=== PATIENT | female | born 1990 | race Caucasian/White ===

== ENCOUNTER 2022-10-21 20:59 | Emergency (ER) | payer BC, SELFPAY ==
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
[2022-10-21 21:11] VITALS: PULSE 126; RESP 20; TEMP 36.2; O2SAT 100; BMI 27.4
--- NOTE | 2022-10-21 21:15 | CRLHL7_ITS ---
For Patients: As a result of the Century Cures Act, medical imaging exams and procedure reports are released immediately into your electronic medical record. You may view this report before your referring provider. If you have questions, please contact your health care provider. INDICATION: Altered mental status. TECHNIQUE: CT head without contrast. COMPARISON: None. FINDINGS: CSF spaces: Within normal limits for age. Brain parenchyma: The levine-white differentiation is normal. No sign of mass, hemorrhage, or midline shift. Skull base and calvarium: Scattered polypoid mucosal thickening in the ethmoid, maxillary, and sphenoid sinuses. Mastoid air cells are clear. The visualized orbits are grossly unremarkable. No skull fractures. IMPRESSION: 1. No acute intracranial abnormality. 2. Scattered polypoid mucosal thickening in the ethmoid, maxillary, and sphenoid sinuses. Please note that all CT scans at this facility use dose modulation, iterative reconstruction, and/or weight-based dosing when appropriate to reduce radiation dose to as low as reasonably achievable. Dictated by Ross Hamilton MD @ 10/21/2022 11:06:52 PM (Electronically Signed)
--- NOTE | 2022-10-21 21:18 | ED.AMS ---
HPI - Altered Mental Status General Chief Complaint: Altered Mental Status <Janse Tamayo MD - Last Filed: 10/21/22 23:18> Stated Complaint: delusional <Janes Tamayo MD - Last Filed: 10/21/22 23:18> Time Seen by Provider: 10/21/22 21:15 <Janes Tamayo MD - Last Filed: 10/21/22 23:18> History of Present Illness HPI narrative: Patient is a 32-year-old woman with a history of only mild anxiety depression on fluoxetine who presents with 2 days of psychosis. Patient was in her usual state of health yesterday when she did show a better parent's house to hot die picker her children. Patient's parents when looking for found her in her own home appearing disheveled and confused. Patient has remained agitated and delirious med and often times nonsensical our last 24 hours. Patient is not able answer any questions and as a result was brought into the hospital by a mom. Patient's last alcohol by history was 5 days ago she has had no recent traumas. No fevers no chills no night sweats. No rashes no bruising no similar symptoms previously. No change in medication although compliance is unknown. <Janes Tamayo MD - Last Filed: 10/21/22 23:18> Related Data Home Medications: Home Medications Medication Instructions Recorded Confirmed betamethasone dipropionate 0.05 % 1 applic topical BID 10/21/22 10/21/22 topical cream dextroamphetamine-amphetamine 10 1 tab PO DAILY 10/21/22 10/21/22 mg tablet fluoxetine 10 mg capsule 10 mg PO DAILY 10/21/22 10/21/22 levonorgestrel-ethinyl estradiol 1 tab PO DAILY 10/21/22 10/21/22 0.1 mg-20 mcg tablet (Lessina) minocycline 100 mg capsule 100 mg PO BID 10/21/22 10/21/22 <Janes Tamayo MD - Last Filed: 10/21/22 23:18> Allergies/Adverse Reactions: Allergies Allergy/AdvReac Type Severity Reaction Status Date / Time No Known Drug Allergies Allergy Verified 10/21/22 21:09 <Janes Tamayo MD - Last Filed: 10/21/22 23:18> Review of Systems Status of ROS: Reports: unobtainable due to medical condition <Janes Tamayo MD - Last Filed: 10/21/22 23:18> [facility] Medical History: Medical History ADHD ?F90.9 - Attention-deficit hyperactivity disorder, unspecified type (ICD-10) Anxiety and depression ?F41.9 - Anxiety disorder, unspecified (ICD-10) ?F32.A - Depression, unspecified (ICD-10) <Janes Tamayo MD - Last Filed: 10/21/22 23:18> Social History: Social History How often do you have a drink containing alcohol: 2-4 times a month How many standard drinks containing alcohol do you have on a typical day: 3 or 4 How often do you have six or more drinks on one occasion: Less than monthly AUDIT-C Alcohol total score: 4 Non-prescribed substance use: denies use <Janes Tamayo MD - Last Filed: 10/21/22 23:18> Exam Narrative: Exam Narrative: EXAM GENERAL: Patient appears writhing acutely delirious. EYES: No scleral icterus. LYMPH: No supraclavicular or cervical lymphadenopathy. SKIN: Visible skin seen during exam normal or with benign process only. EXT: No dependent lower extremity pedal edema. HEART: Regular rate and rhythm with no murmurs, rubs, or gallops. LUNGS: Clear to auscultation bilaterally with no crackles or wheezes. ABD: Soft, non tender, non distended. PSYCH: Poor eye contact. Patient says nonsensical words and does not follow the conversation at all. Neurologic cranial nerves 2-12 grossly intact no focal defects <Janes Tamayo MD - Last Filed: 10/21/22 23:18> Const: Vital Signs, click to edit/add: Vital Signs - 24 hr 10/21/22 21:11 10/21/22 22:54 10/22/22 08:11 Temperature 97.2 F L 98.2 F Pulse Rate [Pulse Oximeter] 126 H 81 71 Respiratory Rate 20 14 18 Blood Pressure [Ri ght Upper Arm] 115/72 125/90 H Pulse Oximetry 100 99 97 Oxygen Delivery Me thod Room Air Room Air Room Air <Janes Tamayo MD - Last Filed: 10/21/22 23:18> Vital Signs, click to edit/add: Vital Signs - 24 hr 10/21/22 21:11 10/21/22 22:54 10/22/22 08:11 Temperature 97.2 F L 98.2 F Pulse Rate [Pulse Oximeter] 126 H 81 71 Respiratory Rate 20 14 18 Blood Pressure [Ri ght Upper Arm] 115/72 125/90 H Pulse Oximetry 100 99 97 Oxygen Delivery Me thod Room Air Room Air Room Air <Nena Contreras MD - Last Filed: 10/22/22 10:44> Course Course Hospital Course: Patient seen examined. CT of the head salicylate acetaminophen CBC CMP ETOH toxicology UA beta hCG pending. Took over the care for this patient. 32-year-old female presented confused agitated last night, received a dose of Zyprexa in order to have the CT scan done has been sleeping overnight. CT scan normal. Labs were unremarkable except for urine drug screen was positive for both marijuana and amphetamines -patient is on Adderall. Patient woke up this morning acting much more like herself. 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 She admits to using marijuana regularly and drinks several drinks every 2 days or so. She is concerned that when she does drink she does not sleep, she believes that her symptoms are due to a complete lack of sleep. She denies all other drug use. Of note, She does have very poor dentition. DEC assessment was done: They found her to be a little slow this morning. She told them the same story that I got from her. She does deny hallucinations she denies suicidal ideations or homicidal ideation. She does feel safe to be discharged home at this time with outpatient psychiatry scheduled per DEC. Family is in contact with her daily. <Janes Tamayo MD - Last Filed: 10/21/22 23:18> Reevaluation(s) Reevaluation #1: Patient remains significantly agitated. In order to provide for the patient's safety and to continue with evaluation I did to treat her with 10 mg of IM Zyprexa. <Janes Tamayo MD - Last Filed: 10/21/22 23:18> Reevaluation #2: Patient's workup to this point has been on remarkable. Urine toxicology UA still pending. CT of the head shows minor sinus issues. No other acute abnormalities noted. Patient is resting comfortably after receiving 10 mg of IM Zyprexa for severe agitation. <Janes Tamayo MD - Last Filed: 10/21/22 23:18> Vital Signs Vital signs: Initial Vital Signs Temperature 97.2 F L 10/21/22 21:11 Temperature Source Temporal Artery Scan 10/21/22 21:11 Pulse Rate 126 H 10/21/22 21:11 Respiratory Rate 20 10/21/22 21:11 Pulse Oximetry 100 10/21/22 21:11 Oxygen Delivery Method Room Air 10/21/22 21:11 Vital Signs Temperature 97.2 F L 10/21/22 21:11 Pulse Rate 126 H 10/21/22 21:11 Respiratory Rate 20 10/21/22 21:11 Pulse Oximetry 100 10/21/22 21:11 Oxygen Delivery Method Room Air 10/21/22 21:11 Temperature 98.2 F 10/22/22 08:11 Pulse Rate 71 10/22/22 08:11 Respiratory Rate 18 10/22/22 08:11 Blood Pressure 125/90 H 10/22/22 08:11 Pulse Oximetry 97 10/22/22 08:11 Oxygen Delivery Method Room Air 10/22/22 08:11 <Janes Tamayo MD - Last Filed: 10/21/22 23:18> Initial Vital Signs Temperature 97.2 F L 10/21/22 21:11 Temperature Source Temporal Artery Scan 10/21/22 21:11 Pulse Rate 126 H 10/21/22 21:11 Respiratory Rate 20 10/21/22 21:11 Pulse Oximetry 100 10/21/22 21:11 Oxygen Delivery Method Room Air 10/21/22 21:11 Vital Signs Temperature 97.2 F L 10/21/22 21:11 Pulse Rate 126 H 10/21/22 21:11 Respiratory Rate 20 10/21/22 21:11 Pulse Oximetry 100 10/21/22 21:11 Oxygen Delivery Method Room Air 10/21/22 21:11 Temperature 98.2 F 10/22/22 08:11 Pulse Rate 71 10/22/22 08:11 Respiratory Rate 18 10/22/22 08:11 Blood Pressure 125/90 H 10/22/22 08:11 Pulse Oximetry 97 10/22/22 08:11 Oxygen Delivery Method Room Air 10/22/22 08:11 <Nena Contreras MD - Last Filed: 10/22/22 10:44> MDM - Altered Mental Status MDM Narrative Medical decision making narrative: 32-year-old female altered mental status, unclear etiology. Patient appears to be back to her baseline this morning although perhaps processing a little slower than usual. There is no evidence of brain pathology such as subarachnoid hemorrhage, no evidence of sepsis or infection. At this time she does feel safe to go home and family feel safe with this plan also as they do have daily contact with her. DEC will set up outpatient psychiatry and follow-up. Certainly return to the ER if symptoms return. Patient and family felt comfortable with this plan and had no other questions. <Nena Contreras MD - Last Filed: 10/22/22 10:44> Medical Records Attestation: I reviewed the patient's medical records. <Nena Contreras MD - Last Filed: 10/22/22 10:44> Lab Data Attestation: I reviewed the patient's lab results. <Nena Contreras MD - Last Filed: 10/22/22 10:44> Labs: Lab Results 10/21/22 10/21/22 10/21/22 Range/Units 21:30 21:30 21:30 WBC 11.49 H (4.50-11.00) K/uL RBC 4.89 (4.00-5.20) m/uL Hgb 14.4 (12.0-16.0) gm/dL Hct 42.1 (33.0-51.0) % MCV 86 (80-100) fL MCH 29 (26-34) pg MCHC 34 (32-36) gm/dL RDW Coeff of Enoc 12.5 (11.5-15.5) % Plt Count 316 (140-440) K/uL Neut % (Auto) 68.4 (42.0-72.0) % Lymph % (Auto) 24.5 (20-44) % Jones % (Auto) 5.9 (0.0-11.0) % Eos % (Auto) 0.9 (0.0-7.0) % Baso % (Auto) 0.2 (0.0-3.0) % Neut # (Auto) 7.90 H (1.7-7.0) K/uL Lymph # (Auto) 2.80 (0.90-2.90) K/uL Jones # (Auto) 0.70 (0.00-0.90) K/UL Eos # (Auto) 0.10 (0.00-0.50) K/uL Baso # (Auto) 0.00 (0.00-0.30) K/uL Sodium 138 (135-149) mmol/L Potassium 3.9 (3.6-5.1) mmol/L Chloride 103 (96-114) mmol/L Carbon Dioxide 23 (20-32) mmol/L BUN 11 (5-24) mg/dL Creatinine 0.7 (0.5-1.5) mg/dL Estimated Creat Clear 113.24 Estimated GFR 119 ml/min Glucose 82 (60-115) mg/dL Calcium 9.5 (8.4-10.6) mg/dL Total Bilirubin 0.9 (0.1-1.5) mg/dL AST 36 H (12-35) U/L ALT 33 (4-35) U/L Alkaline Phosphatase 81 (40-150) U/L Total Protein 7.9 (6.0-8.3) g/dL Albumin 4.6 (3.3-5.0) g/dL HCG, Qual Negative (Negative) Urine Color (Yellow) Urine Appearance (Clear) Urine pH (5.0-8.5) Ur Specific Needles (1.000-1.030) Urine Protein (Negative) Urine Glucose (UA) (Negative) Urine Ketones (Negative) Urine Blood (Negative) Urine Nitrite (Negative) Urine Bilirubin (Negative) Urine Urobilinogen (0.2-1.0) Ur Leukocyte Esterase (Negative) Salicylates < 1.0 L Cancelled (1.0-10) mg/dL Urine Opiates Screen (Negative) Ur Oxycodone Screen (Negative) Urine Methadone Screen (Negative) Ur Propoxyphene Screen (Negative) Acetaminophen < 10.0 L Cancelled (10.0-30.0) ug/mL Ur Barbiturates Screen (Negative) U Tricyclic Antidepress (Negative) Ur Phencyclidine Scrn (Negative) Ur Amphetamines Screen (Negative) U Methamphetamines Scrn (Negative) U Benzodiazepines Scrn (Negative) Urine Cocaine Screen (Negative) U Marijuana (THC) Screen (Negative) Ur Drug Screen Comment Ethyl Alcohol < 0.01 L (0.01-0.03) % 10/22/22 10/22/22 Range/Units 08:10 08:14 WBC (4.50-11.00) K/uL RBC (4.00-5.20) m/uL Hgb (12.0-16.0) gm/dL Hct (33.0-51.0) % MCV (80-100) fL MCH (26-34) pg MCHC (32-36) gm/dL RDW Coeff of Enoc (11.5-15.5) % Plt Count (140-440) K/uL Neut % (Auto) (42.0-72.0) % Lymph % (Auto) (20-44) % Jones % (Auto) (0.0-11.0) % Eos % (Auto) (0.0-7.0) % Baso % (Auto) (0.0-3.0) % Neut # (Auto) (1.7-7.0) K/uL Lymph # (Auto) (0.90-2.90) K/uL Jones # (Auto) (0.00-0.90) K/UL Eos # (Auto) (0.00-0.50) K/uL Baso # (Auto) (0.00-0.30) K/uL Sodium (135-149) mmol/L Potassium (3.6-5.1) mmol/L Chloride (96-114) mmol/L Carbon Dioxide (20-32) mmol/L BUN (5-24) mg/dL Creatinine (0.5-1.5) mg/dL Estimated Creat Clear Estimated GFR ml/min Glucose (60-115) mg/dL Calcium (8.4-10.6) mg/dL Total Bilirubin (0.1-1.5) mg/dL AST (12-35) U/L ALT (4-35) U/L Alkaline Phosphatase (40-150) U/L Total Protein (6.0-8.3) g/dL Albumin (3.3-5.0) g/dL HCG, Qual (Negative) Urine Color Yellow (Yellow) Urine Appearance Clear (Clear) Urine pH 5.5 (5.0-8.5) Ur Specific Needles 1.025 (1.000-1.030) Urine Protein Negative (Negative) Urine Glucose (UA) Negative (Negative) Urine Ketones 1+ A (Negative) Urine Blood Negative (Negative) Urine Nitrite Negative (Negative) Urine Bilirubin 1+ A (Negative) Urine Urobilinogen 0.2 (0.2-1.0) Ur Leukocyte Esterase Negative (Negative) Salicylates (1.0-10) mg/dL Urine Opiates Screen Negative (Negative) Ur Oxycodone Screen Negative (Negative) Urine Methadone Screen Negative (Negative) Ur Propoxyphene Screen Negative (Negative) Acetaminophen (10.0-30.0) ug/mL Ur Barbiturates Screen Negative (Negative) U Tricyclic Antidepress Negative (Negative) Ur Phencyclidine Scrn Negative (Negative) Ur Amphetamines Screen POSITIVE A* (Negative) U Methamphetamines Scrn Negative (Negative) U Benzodiazepines Scrn Negative (Negative) Urine Cocaine Screen Negative (Negative) U Marijuana (THC) Screen POSITIVE A* (Negative) Ur Drug Screen Comment See Note Ethyl Alcohol (0.01-0.03) % <Janes Tamayo MD - Last Filed: 10/21/22 23:18> Lab Results 10/21/22 10/21/22 10/21/22 Range/Units 21:30 21:30 21:30 WBC 11.49 H (4.50-11.00) K/uL RBC 4.89 (4.00-5.20) m/uL Hgb 14.4 (12.0-16.0) gm/dL Hct 42.1 (33.0-51.0) % MCV 86 (80-100) fL MCH 29 (26-34) pg MCHC 34 (32-36) gm/dL RDW Coeff of Enoc 12.5 (11.5-15.5) % Plt Count 316 (140-440) K/uL Neut % (Auto) 68.4 (42.0-72.0) % Lymph % (Auto) 24.5 (20-44) % Jones % (Auto) 5.9 (0.0-11.0) % Eos % (Auto) 0.9 (0.0-7.0) % Baso % (Auto) 0.2 (0.0-3.0) % Neut # (Auto) 7.90 H (1.7-7.0) K/uL Lymph # (Auto) 2.80 (0.90-2.90) K/uL Jones # (Auto) 0.70 (0.00-0.90) K/UL Eos # (Auto) 0.10 (0.00-0.50) K/uL Baso # (Auto) 0.00 (0.00-0.30) K/uL Sodium 138 (135-149) mmol/L Potassium 3.9 (3.6-5.1) mmol/L Chloride 103 (96-114) mmol/L Carbon Dioxide 23 (20-32) mmol/L BUN 11 (5-24) mg/dL Creatinine 0.7 (0.5-1.5) mg/dL Estimated Creat Clear 113.24 Estimated GFR 119 ml/min Glucose 82 (60-115) mg/dL Calcium 9.5 (8.4-10.6) mg/dL Total Bilirubin 0.9 (0.1-1.5) mg/dL AST 36 H (12-35) U/L ALT 33 (4-35) U/L Alkaline Phosphatase 81 (40-150) U/L Total Protein 7.9 (6.0-8.3) g/dL Albumin 4.6 (3.3-5.0) g/dL HCG, Qual Negative (Negative) Urine Color (Yellow) Urine Appearance (Clear) Urine pH (5.0-8.5) Ur Specific Needles (1.000-1.030) Urine Protein (Negative) Urine Glucose (UA) (Negative) Urine Ketones (Negative) Urine Blood (Negative) Urine Nitrite (Negative) Urine Bilirubin (Negative) Urine Urobilinogen (0.2-1.0) Ur Leukocyte Esterase (Negative) Salicylates < 1.0 L Cancelled (1.0-10) mg/dL Urine Opiates Screen (Negative) Ur Oxycodone Screen (Negative) Urine Methadone Screen (Negative) Ur Propoxyphene Screen (Negative) Acetaminophen < 10.0 L Cancelled (10.0-30.0) ug/mL Ur Barbiturates Screen (Negative) U Tricyclic Antidepress (Negative) Ur Phencyclidine Scrn (Negative) Ur Amphetamines Screen (Negative) U Methamphetamines Scrn (Negative) U Benzodiazepines Scrn (Negative) Urine Cocaine Screen (Negative) U Marijuana (THC) Screen (Negative) Ur Drug Screen Comment Ethyl Alcohol < 0.01 L (0.01-0.03) % 10/22/22 10/22/22 Range/Units 08:10 08:14 WBC (4.50-11.00) K/uL RBC (4.00-5.20) m/uL Hgb (12.0-16.0) gm/dL Hct (33.0-51.0) % MCV (80-100) fL MCH (26-34) pg MCHC (32-36) gm/dL RDW Coeff of Enoc (11.5-15.5) % Plt Count (140-440) K/uL Neut % (Auto) (42.0-72.0) % Lymph % (Auto) (20-44) % Jones % (Auto) (0.0-11.0) % Eos % (Auto) (0.0-7.0) % Baso % (Auto) (0.0-3.0) % Neut # (Auto) (1.7-7.0) K/uL Lymph # (Auto) (0.90-2.90) K/uL Jones # (Auto) (0.00-0.90) K/UL Eos # (Auto) (0.00-0.50) K/uL Baso # (Auto) (0.00-0.30) K/uL Sodium (135-149) mmol/L Potassium (3.6-5.1) mmol/L Chloride (96-114) mmol/L Carbon Dioxide (20-32) mmol/L BUN (5-24) mg/dL Creatinine (0.5-1.5) mg/dL Estimated Creat Clear Estimated GFR ml/min Glucose (60-115) mg/dL Calcium (8.4-10.6) mg/dL Total Bilirubin (0.1-1.5) mg/dL AST (12-35) U/L ALT (4-35) U/L Alkaline Phosphatase (40-150) U/L Total Protein (6.0-8.3) g/dL Albumin (3.3-5.0) g/dL HCG, Qual (Negative) Urine Color Yellow (Yellow) Urine Appearance Clear (Clear) Urine pH 5.5 (5.0-8.5) Ur Specific Needles 1.025 (1.000-1.030) Urine Protein Negative (Negative) Urine Glucose (UA) Negative (Negative) Urine Ketones 1+ A (Negative) Urine Blood Negative (Negative) Urine Nitrite Negative (Negative) Urine Bilirubin 1+ A (Negative) Urine Urobilinogen 0.2 (0.2-1.0) Ur Leukocyte Esterase Negative (Negative) Salicylates (1.0-10) mg/dL Urine Opiates Screen Negative (Negative) Ur Oxycodone Screen Negative (Negative) Urine Methadone Screen Negative (Negative) Ur Propoxyphene Screen Negative (Negative) Acetaminophen (10.0-30.0) ug/mL Ur Barbiturates Screen Negative (Negative) U Tricyclic Antidepress Negative (Negative) Ur Phencyclidine Scrn Negative (Negative) Ur Amphetamines Screen POSITIVE A* (Negative) U Methamphetamines Scrn Negative (Negative) U Benzodiazepines Scrn Negative (Negative) Urine Cocaine Screen Negative (Negative) U Marijuana (THC) Screen POSITIVE A* (Negative) Ur Drug Screen Comment See Note Ethyl Alcohol (0.01-0.03) % <Nena Contreras MD - Last Filed: 10/22/22 10:44> Imaging Data CT scan - head: Attestation: I have reviewed the pertinent imaging results. <Nena Contreras MD - Last Filed: 10/22/22 10:44> Radiologist's impression: CT head without contrast. COMPARISON: None. FINDINGS: CSF spaces: Within normal limits for age. Brain parenchyma: The levine-white differentiation is normal. No sign of mass, hemorrhage, or midline shift. Skull base and calvarium: Scattered polypoid mucosal thickening in the ethmoid, maxillary, and sphenoid sinuses. Mastoid air cells are clear. The visualized orbits are grossly unremarkable. No skull fractures. IMPRESSION: 1. No acute intracranial abnormality. 2. Scattered polypoid mucosal thickening in the ethmoid, maxillary, and sphenoid sinuses. <Nena Contreras MD - Last Filed: 10/22/22 10:44> Discharge Plan Discharge Clinical Impression: Altered mental status <Janes Tamayo MD - Last Filed: 10/21/22 23:18> Patient Disposition: Home, Self-Care <Janes Tamayo MD - Last Filed: 10/21/22 23:18> Condition: Improved <Janes Tamayo MD - Last Filed: 10/21/22 23:18> Additional Instructions: Outpatient follow-up per MAR. Return to the ER if symptoms return. <Janes Tamayo MD - Last Filed: 10/21/22 23:18> Prescriptions: No Action levonorgestrel-ethinyl estrad [Lessina] 0.1-20 mg-mcg tablet 1 tab PO DAILY minocycline 100 mg capsule 100 mg PO BID dextroamphetamine-amphetamine 10 mg tablet 1 tab PO DAILY fluoxetine 10 mg capsule 10 mg PO DAILY betamethasone dipropionate 0.05 % cream 1 applic topical BID <Janes Tamayo MD - Last Filed: 10/21/22 23:18> Follow Up/Referrals: Neela Salcedo DO [Primary Care Provider] - <Janes Tamayo MD - Last Filed: 10/21/22 23:18> [facility] <Janes Tamayo MD - Last Filed: 10/21/22 23:18>
[2022-10-21 21:39] LABS: Basophils Percent Auto 0.2 % (0.0-3.0); Eosinophils Percent Auto 0.9 % (0.0-7.0); Hematocrit 42.1 % (33.0-51.0); Hemoglobin* 14.4 gm/dL (12.0-16.0); Immature Granulocytes Pct Auto 0.1 %; Lymphocytes Percent Auto 24.5 % (20-44); Mean Corpuscular HGB Conc 34 gm/dL (32-36); Mean Corpuscular Hemoglobin 29 pg (26-34); Mean Corpuscular Volume 86 fL (80-100); Monocytes Percent Auto 5.9 % (0.0-11.0); Neutrophils Percent Auto 68.4 % (42.0-72.0); Platelet Count* 316 K/uL (140-440); RDW Coefficient of Variation % 12.5 % (11.5-15.5); Red Blood Count 4.89 m/uL (4.00-5.20); White Blood Count* 11.49 K/uL (4.50-11.00)
[2022-10-21 21:41] LABS: Slide Review Reflex No
[2022-10-21 21:58] LABS: Chloride* 103 mmol/L (96-114)
[2022-10-21 21:59] LABS: Albumin* 4.6 g/dL (3.3-5.0)
[2022-10-21 22:00] LABS: Potassium* 3.9 mmol/L (3.6-5.1); Sodium* 138 mmol/L (135-149)
[2022-10-21 22:02] LABS: Alanine Aminotransferase* 33 U/L (4-35); Alkaline Phosphatase* 81 U/L (40-150); Aspartate Amino Transferase* 36 U/L (12-35); Bilirubin Total* 0.9 mg/dL (0.1-1.5); Blood Urea Nitrogen* 11 mg/dL (5-24); Calcium* 9.5 mg/dL (8.4-10.6); Carbon Dioxide* 23 mmol/L (20-32); Creatinine* 0.7 mg/dL (0.5-1.5); Est. Creatinine Clearance* 113.24; Estimated Glomerular Filt Rate 119 ml/min; Glucose* 82 mg/dL (60-115); Total Protein* 7.9 g/dL (6.0-8.3)
[2022-10-21 22:11] LABS: Acetaminophen* < 10.0 ug/mL (10.0-30.0); Ethanol* < 0.01 % (0.01-0.03); Salicylate* < 1.0 mg/dL (1.0-10)
[2022-10-21] MEDS: OLANZapine 5 MG/ML inj 10 MG IM (22:19)
[2022-10-21 22:31] LABS: HCG Qualitative Serum* Negative (Negative)
[2022-10-21 22:54] VITALS: BP 115/72; PULSE 81; RESP 14; O2SAT 99
--- NOTE | 2022-10-21 23:02 | ED.NURSE ---
Patient moved to safe modified exam room.
--- NOTE | 2022-10-22 07:17 | ED.NURSE ---
Patients mother called for update. Patients mother updated that patient slept through the night and will try and attempt a assessment when patient more awake.
[2022-10-22 08:11] VITALS: BP 125/90; PULSE 71; RESP 18; TEMP 36.8; O2SAT 97
--- NOTE | 2022-10-22 08:17 | ED.NURSE ---
Up awake, able to ambulate to BR to leave UA. When asked if she remembers why she was here she states that she was confused. Denies hearing voices. States she is tired. Dr Tamayo updated and DEC ordered. UA sent to lab. Pt offered meal tray, which she declines. Aware that she will have a DEC assessment.
[2022-10-22 08:22] LABS: Appearance Urine Clear (Clear); Bilirubin Urine 1+ (Negative); Blood Urine Negative (Negative); Color Urine Yellow (Yellow); Glucose Urine Negative (Negative); Ketones Urine 1+ (Negative); Leukocyte Esterase Urine Negative (Negative); Nitrite Urine Negative (Negative); Protein Urine Negative (Negative); Specific Gravity Urine 1.025 (1.000-1.030); Urobilinogen Urine 0.2 (0.2-1.0); pH Urine 5.5 (5.0-8.5)
[2022-10-22 08:28] LABS: Barbiturate Screen Urine Negative (Negative); Benzodiazepines Screen Urine Negative (Negative); Cocaine Screen Urine Negative (Negative); Methadone Screen Urine Negative (Negative); Methamphetamines Screen Urine Negative (Negative); Opiate Screen Urine Negative (Negative); Oxycodone Screen Urine Negative (Negative); Phencyclidine Screen Urine Negative (Negative); Tricyclic Antidepressant Urine Negative (Negative)
[2022-10-22 08:43] LABS: Cannabinoid Screen Urine POSITIVE (Negative)
[2022-10-22 08:44] LABS: Amphetamine Screen Urine POSITIVE (Negative)
--- NOTE | 2022-10-22 09:30 | ED.NURSE ---
DEC assessment started
== END 2022-10-22 11:50 | disposition home or self-care (01) ==
PROVIDERS: Internal Medicine; Emergency Provider Family Medicine; PCP Family Medicine
DX: R41.82 Altered mental status, unspecified (principal)
CPT/HCPCS: 36415; 70450; 80053; 80143; 80179; 80306; 81003; 82077; 84703; 85025; 96372; 99284; 99285; S0166

== ENCOUNTER 2022-10-26 13:54 | Outpatient (CLI) | payer BC, SELFPAY | END 2022-10-26 13:55 | disposition home or self-care (01) | LOC: AMB 11-19 14:49 | PROVIDERS: PCP Family Medicine; Visit Provider Family Medicine | DX: F29 Unspecified psychosis not due to a substance or known physiological condition (principal) | CPT/HCPCS: A0425; A0429 ==

== ENCOUNTER 2022-10-26 14:35 | Inpatient (IN) | payer BC, SELFPAY ==
[2022-10-26] VITALS (27 sets, daily range): BP systolic 115–147; BP diastolic 70–94; PULSE 89–139; RESP 10–32; TEMP 36.4–37.4; O2SAT 97–100; BMI 36.2
[2022-10-26] MEDS: OLANZapine 5 MG/ML inj 10 MG IVP (14:42)
--- NOTE | 2022-10-26 14:50 | ED.NURSE ---
Pt very animated and appears to be hallucinating. Pt yells and screams out regularly, pt singing random songs, pt calling out to persons who are not present in the room. Pt flails her limbs periodically but has remained in bed.
--- NOTE | 2022-10-26 14:54 | ED_ITS ---
HPI - General Adult General Chief complaint: Altered Mental Status Stated complaint: Ill Time Seen by Provider: 10/26/22 14:45 History of Present Illness HPI narrative: Patient is a 32-year-old female who arrives with altered mental status, agitation, obvious confusion. She presented in a similar fashion recently and had a negative workup negative CT scan of the head, negative lab studies and only positive in the urine for amphetamine which she is on Adderall and marijuana. Patient was picked up at work near [place] and was agitated and confused. No apparent injury. She was brought in by ambulance. IV was started. She had fear to be awake and alert intermittently she will talk intermittently but be confusional scream out, thrash. Related Data Home Medications Medication Instructions Recorded Confirmed betamethasone dipropionate 0.05 % 1 applic topical BID 10/21/22 10/26/22 topical cream minocycline 100 mg capsule 100 mg PO BID 10/21/22 10/26/22 dextroamphetamine-amphetamine 20 1 tab PO BID 10/26/22 10/26/22 mg tablet dextroamphetamine-amphetamine 5 mg 1 tab PO BID 10/26/22 10/26/22 tablet fluoxetine 40 mg capsule 40 mg PO DAILY 10/26/22 10/26/22 tretinoin 0.05 % topical cream 1 applic topical Q48H 10/26/22 10/26/22 (Retin-A) Allergies Allergy/AdvReac Type Severity Reaction Status Date / Time codeine AdvReac Severe Verified 10/26/22 18:52 Review of Systems Status of ROS: Reports: unobtainable due to medical condition [facility] Medical History (Updated 10/26/22 @ 17:51 by Courtney Camarena MD) Hidradenitis ?L73.2 - Hidradenitis suppurativa (ICD-10) Dyshidrotic eczema ?L30.1 - Dyshidrosis [pompholyx] (ICD-10) ADHD ?F90.9 - Attention-deficit hyperactivity disorder, unspecified type (ICD-10) Anxiety and depression ?F41.9 - Anxiety disorder, unspecified (ICD-10) ?F32.A - Depression, unspecified (ICD-10) Surgical History (Updated 10/26/22 @ 17:29 by Courtney Camarena MD) S/P tonsillectomy and adenoidectomy ?Z90.89 - Acquired absence of other organs (ICD-10) S/P LEEP (loop electrosurgical excision procedure) ?Z98.890 - Other specified postprocedural states (ICD-10) Social History What is your current living situation: I presently have a place to live Problems where you live: no known problems Problems where you live details: na In the past 12 months, utilities in danger of being shut off: no In the past 12 mos, have been you worried that your food would run out before you had money to buy more?: sometimes true In the past 12 mos, the food you bought just didn't last and you didn't have money to buy more?: sometimes true Highest level of school completed/degree received: some college, no degree Smoking Status: Current some day smoker How often do you have a drink containing alcohol: 2-4 times a month How many standard drinks containing alcohol do you have on a typical day: 3 or 4 How often do you have six or more drinks on one occasion: Less than monthly AUDIT-C Alcohol total score: 4 Non-prescribed substance use: marijuana (any form) Caffeine: Yes (2/3 cans a day) How often does anyone, including family, friends and others, physically hurt you : How often does anyone, including family, friends and others, insult or talk down to you: How often does anyone, including family, friends and others, threaten you with harm: How often does anyone, including family, friends and others, scream or curse at you: service: No Exam Narrative: Exam Narrative: Objective: Patient is thrashing, is a alert, does not respond to questions, does occasionally talking nonsensical sentences. The word she says are legitimate. She is moving all extremities Vital signs show her to be tachycardic at 1:36 a.m. O2 sat is excellent, temp is 99?. HEENT shows pupils are small but they react they are equal, she moves her eyes about no facial asymmetry neck non bruised or reddened chest is clear heart rhythm regular without murmur tachycardic abdomen obese benign nontender she is moving her legs no swelling of the legs or edema. No evidence evidence of trauma. Const: Vital Signs, click to edit/add: Vital Signs - 24 hr 10/26/22 14:48 10/26/22 14:48 10/26/22 15:07 Temperature 99.3 F Pulse Rate 136 H Pulse Rate [Right Pulse Oximeter] 136 H Respiratory Rate 20 Blood Pressure Blood Pressure [Ri ght Upper Arm] 144/85 H Pulse Oximetry 100 100 100 Oxygen Delivery Me thod Room Air Oxygen Flow Rate 10/26/22 15:12 10/26/22 15:15 10/26/22 15:30 Temperature Pulse Rate 129 H 133 H Pulse Rate [Right Pulse Oximeter] Respiratory Rate 32 H Blood Pressure Blood Pressure [Ri ght Upper Arm] Pulse Oximetry 100 100 Oxygen Delivery Me thod Oxygen Flow Rate 10/26/22 15:32 10/26/22 15:33 10/26/22 15:42 Temperature Pulse Rate 129 H 132 H 139 H Pulse Rate [Right Pulse Oximeter] Respiratory Rate 10 L 14 Blood Pressure 115/70 139/86 Blood Pressure [Ri ght Upper Arm] Pulse Oximetry 100 99 100 Oxygen Delivery Me thod Oxygen Flow Rate 10/26/22 15:45 10/26/22 15:46 10/26/22 15:50 Temperature Pulse Rate 137 H Pulse Rate [Right Pulse Oximeter] Respiratory Rate 28 H Blood Pressure Blood Pressure [Ri ght Upper Arm] Pulse Oximetry 100 97 Oxygen Delivery Me thod Nasal Cannula Oxygen Flow Rate 2 10/26/22 16:00 10/26/22 16:02 10/26/22 16:03 Temperature Pulse Rate 130 H 131 H 122 H Pulse Rate [Right Pulse Oximeter] Respiratory Rate 32 H Blood Pressure 144/86 H Blood Pressure [Ri ght Upper Arm] Pulse Oximetry 97 97 99 Oxygen Delivery Me thod Nasal Cannula Nasal Cannula Nasal Cannula Oxygen Flow Rate 2 2 2 10/26/22 16:14 10/26/22 16:15 10/26/22 16:30 Temperature Pulse Rate 125 H 115 H 113 H Pulse Rate [Right Pulse Oximeter] Respiratory Rate 14 22 24 Blood Pressure 139/90 H Blood Pressure [Ri ght Upper Arm] Pulse Oximetry 99 99 99 Oxygen Delivery Me thod Nasal Cannula Nasal Cannula Nasal Cannula Oxygen Flow Rate 2 2 1 10/26/22 16:31 10/26/22 16:45 Temperature Pulse Rate 112 H 105 H Pulse Rate [Right Pulse Oximeter] Respiratory Rate 19 25 H Blood Pressure 131/94 H Blood Pressure [Ri ght Upper Arm] Pulse Oximetry 98 97 Oxygen Delivery Me thod Nasal Cannula Nasal Cannula Oxygen Flow Rate 1 1 Course Vital Signs Vital signs: Initial Vital Signs Temperature 99.3 F 10/26/22 14:48 Temperature Source Temporal Artery Scan 10/26/22 14:48 Pulse Rate 136 H 10/26/22 14:48 Respiratory Rate 20 10/26/22 14:48 Blood Pressure 144/85 H 10/26/22 14:48 Blood Pressure Mean 104 10/26/22 14:48 Blood Pressure Position Sitting 10/26/22 14:48 Pulse Oximetry 100 10/26/22 14:48 Oxygen Delivery Method Room Air 10/26/22 14:48 Vital Signs Temperature 99.3 F 10/26/22 14:48 Pulse Rate 136 H 10/26/22 14:48 Respiratory Rate 20 10/26/22 14:48 Blood Pressure 144/85 H 10/26/22 14:48 Pulse Oximetry 100 10/26/22 14:48 Oxygen Delivery Method Room Air 10/26/22 14:48 Temperature 98.1 F 10/26/22 17:33 Pulse Rate 100 10/26/22 18:26 Respiratory Rate 16 10/26/22 18:42 Blood Pressure 147/87 H 10/26/22 17:33 Pulse Oximetry 98 10/26/22 18:42 Oxygen Delivery Method Room Air 10/26/22 18:42 Oxygen Flow Rate 1 10/26/22 18:42 Medical Decision Making [facility] Narrative Medical decision making narrative: 32-year-old female with a history of confusional behavior recently hospitalized with basically negative workup, presents with a similar episode today. Patient successfully got Zyprexa and slept and woke up and felt better last visit and she was given IV Zyprexa now. Will give her a L of fluid, put her on cardiac monitoring oximetry, get an EKG. Will get a urine and urine tox through an in and out catheterization. Patient given chemical sedative if she continues to thrash will do mechanical restraints, and consider IM ketamine. At this point this appears to be more of a mental health type issue, but certainly cannot ex clude exclude drug ingestion or other metabolic abnormality this time. Addendum: Patient continue thrash in seeing and scream out, because of her agitation and her heart rate was elevated, she was given 150 mg IM ketamine in addition the above-mentioned Zyprexa to hopefully settle her and give her some relief. Will observe in the ED, return labs will be reviewed. Addendum: The patient's lab studies look fairly reassuring with exception of her Tylenol levels elevated, it is unclear if she has taken an overdose of Tylenol she is unable to tell us at this point, will discuss with poison Control whether they recommend treatment or not. She does seem more settled with the 2nd dose of ketamine. Labs thus far show normal white count hemoglobin, negative D-dimer, potassium low normal at 3.2 glucose elevated 182 AST ALT are minimally elevated at 37 and 38 which is just a couple points above normal. CRP is normal. Qualitative HCG negative. Salicylate and alcohol negative, acetaminophen 59 unknown time of duration of intake. Lab Data Labs: Lab Results 10/26/22 10/26/22 10/26/22 Range/Units 14:58 16:02 16:06 WBC 8.88 (4.50-11.00) K/uL RBC 4.54 (4.00-5.20) m/uL Hgb 13.5 (12.0-16.0) gm/dL Hct 39.3 (33.0-51.0) % MCV 87 (80-100) fL MCH 30 (26-34) pg MCHC 34 (32-36) gm/dL RDW Coeff of Enoc 12.7 (11.5-15.5) % Plt Count 268 (140-440) K/uL Neut % (Auto) 78.2 H (42.0-72.0) % Lymph % (Auto) 15.3 L (20-44) % [place] % (Auto) 6.0 (0.0-11.0) % Eos % (Auto) 0.2 (0.0-7.0) % Baso % (Auto) 0.2 (0.0-3.0) % Neut # (Auto) 6.90 (1.7-7.0) K/uL Lymph # (Auto) 1.40 (0.90-2.90) K/uL [place] # (Auto) 0.50 (0.00-0.90) K/UL Eos # (Auto) 0.02 (0.00-0.50) K/uL Baso # (Auto) 0.02 (0.00-0.30) K/uL INR 0.92 (0.91-1.10) D-Dimer Quant (PE/DVT) 0.27 (0.00-0.50) ug/ml Sodium 138 (135-149) mmol/L Potassium 3.2 L (3.6-5.1) mmol/L Chloride 105 (96-114) mmol/L Carbon Dioxide 13 L (20-32) mmol/L BUN 8 (5-24) mg/dL Creatinine 0.6 (0.5-1.5) mg/dL Estimated GFR 123 ml/min Glucose 182 H (60-115) mg/dL Hemoglobin A1c 4.88 (0-5.6) % Calcium 9.1 (8.4-10.6) mg/dL Total Bilirubin 0.4 (0.1-1.5) mg/dL Direct Bilirubin 0.1 (0.0-0.5) mg/dL AST 37 H (12-35) U/L ALT 38 H (4-35) U/L Alkaline Phosphatase 68 (40-150) U/L C-Reactive Protein 0.5 (0.5-1.0) mg/dL Total Protein 7.6 (6.0-8.3) g/dL Albumin 4.5 (3.3-5.0) g/dL HCG, Qual Negative (Negative) Urine Color Yellow (Yellow) Urine Appearance Clear (Clear) Urine pH 6.0 (5.0-8.5) Ur Specific [place] <= 1.005 (1.000-1.030) Urine Protein Negative (Negative) Urine Glucose (UA) Negative (Negative) Urine Ketones Negative (Negative) Urine Blood Trace-intact A (Negative) Urine Nitrite Negative (Negative) Urine Bilirubin Negative (Negative) Urine Urobilinogen 0.2 (0.2-1.0) Ur Leukocyte Esterase Negative (Negative) Urine RBC 0-2 (0-2) Urine WBC 0-2 (0-5) Ur Squamous Epith Cells Few (None-Few) Urine Bacteria None (None) Salicylates < 1.0 L (1.0-10) mg/dL Urine Opiates Screen Negative (Negative) Ur Oxycodone Screen Negative (Negative) Urine Methadone Screen Negative (Negative) Ur Propoxyphene Screen Negative (Negative) Acetaminophen 59.0 H (10.0-30.0) ug/mL Ur Barbiturates Screen Negative (Negative) U Tricyclic Antidepress Negative (Negative) Ur Phencyclidine Scrn Negative (Negative) Ur Amphetamines Screen POSITIVE A* (Negative) U Methamphetamines Scrn Negative (Negative) U Benzodiazepines Scrn Negative (Negative) Urine Cocaine Screen Negative (Negative) U Marijuana (THC) Screen Negative (Negative) Ur Drug Screen Comment See Note Ethyl Alcohol < 0.01 L (0.01-0.03) % Lab Acknowledgement 10/26/22 Range/Units 16:58 WBC (4.50-11.00) K/uL RBC (4.00-5.20) m/uL Hgb (12.0-16.0) gm/dL Hct (33.0-51.0) % MCV (80-100) fL MCH (26-34) pg MCHC (32-36) gm/dL RDW Coeff of Enoc (11.5-15.5) % Plt Count (140-440) K/uL Neut % (Auto) (42.0-72.0) % Lymph % (Auto) (20-44) % [place] % (Auto) (0.0-11.0) % Eos % (Auto) (0.0-7.0) % Baso % (Auto) (0.0-3.0) % Neut # (Auto) (1.7-7.0) K/uL Lymph # (Auto) (0.90-2.90) K/uL [place] # (Auto) (0.00-0.90) K/UL Eos # (Auto) (0.00-0.50) K/uL Baso # (Auto) (0.00-0.30) K/uL INR (0.91-1.10) D-Dimer Quant (PE/DVT) (0.00-0.50) ug/ml Sodium (135-149) mmol/L Potassium (3.6-5.1) mmol/L Chloride (96-114) mmol/L Carbon Dioxide (20-32) mmol/L BUN (5-24) mg/dL Creatinine (0.5-1.5) mg/dL Estimated GFR ml/min Glucose (60-115) mg/dL Hemoglobin A1c (0-5.6) % Calcium (8.4-10.6) mg/dL Total Bilirubin (0.1-1.5) mg/dL Direct Bilirubin (0.0-0.5) mg/dL AST (12-35) U/L ALT (4-35) U/L Alkaline Phosphatase (40-150) U/L C-Reactive Protein (0.5-1.0) mg/dL Total Protein (6.0-8.3) g/dL Albumin (3.3-5.0) g/dL HCG, Qual (Negative) Urine Color (Yellow) Urine Appearance (Clear) Urine pH (5.0-8.5) Ur Specific [place] (1.000-1.030) Urine Protein (Negative) Urine Glucose (UA) (Negative) Urine Ketones (Negative) Urine Blood (Negative) Urine Nitrite (Negative) Urine Bilirubin (Negative) Urine Urobilinogen (0.2-1.0) Ur Leukocyte Esterase (Negative) Urine RBC (0-2) Urine WBC (0-5) Ur Squamous Epith Cells (None-Few) Urine Bacteria (None) Salicylates (1.0-10) mg/dL Urine Opiates Screen (Negative) Ur Oxycodone Screen (Negative) Urine Methadone Screen (Negative) Ur Propoxyphene Screen (Negative) Acetaminophen (10.0-30.0) ug/mL Ur Barbiturates Screen (Negative) U Tricyclic Antidepress (Negative) Ur Phencyclidine Scrn (Negative) Ur Amphetamines Screen (Negative) U Methamphetamines Scrn (Negative) U Benzodiazepines Scrn (Negative) Urine Cocaine Screen (Negative) U Marijuana (THC) Screen (Negative) Ur Drug Screen Comment Ethyl Alcohol (0.01-0.03) % Lab Acknowledgement Test Added Critical Care Time Critical Care Time Critical Care Time: Yes Attestation: The patient required my highest level preparedness to intervene emergently and I personally spent this critical care time directly and personally managing the patient. This critical care time included: Obtaining a history; Examining the patient; Pulse oximetry; Ordering and reviewing of studies; Arranging urgent treatment with development of a management plan; Evaluation of patients response to treatment; Frequent reassessment discussions with other providers. This critical care time was performed to assess and manage the high probability of imminent life-threatening deterioration that could result in multiorgan failure. It was exclusive of separate billable procedures and treating other patients and teaching time. Total Critical Care Time in Minutes: 120 Discharge Plan Discharge Clinical Impression: Altered mental status Patient Disposition: Admitted As Inpatient Condition: Improved
[2022-10-26] MEDS: 0.9 % SODIUM CHLORIDE 1000 ml 1,000 ML 6000 ML IV (15:03)
[2022-10-26 15:05] LABS: Basophils Absolute Auto 0.02 K/uL (0.00-0.30); Basophils Percent Auto 0.2 % (0.0-3.0); Eosinophils Absolute Auto 0.02 K/uL (0.00-0.50); Eosinophils Percent Auto 0.2 % (0.0-7.0); Hematocrit 39.3 % (33.0-51.0); Hemoglobin* 13.5 gm/dL (12.0-16.0); Immature Granulocytes Abs Auto 0.01 K/uL (0.00-0.30); Immature Granulocytes Pct Auto 0.1 %; Lymphocytes Percent Auto 15.3 % (20-44); Mean Corpuscular HGB Conc 34 gm/dL (32-36); Mean Corpuscular Hemoglobin 30 pg (26-34); Mean Corpuscular Volume 87 fL (80-100); Neutrophils Percent Auto 78.2 % (42.0-72.0); Platelet Count* 268 K/uL (140-440); RDW Coefficient of Variation % 12.7 % (11.5-15.5); Red Blood Count 4.54 m/uL (4.00-5.20); White Blood Count* 8.88 K/uL (4.50-11.00)
[2022-10-26 15:09] LABS: Slide Review Reflex No
--- NOTE | 2022-10-26 15:10 | ED.NURSE ---
Pt continues to exhibit same behaviors, screaming out, singing, making bizarre statements. Statements include I am going to hurt all of you, I am going to fuck my life up, I am going to hurt y'all the worst, I'm just kidding! I'm just kidding!.
[2022-10-26] MEDS: KETAMINE HCL 100 MG/ML inj 150 MG IM (15:25)
[2022-10-26 15:34] LABS: Albumin* 4.5 g/dL (3.3-5.0); Chloride* 105 mmol/L (96-114)
[2022-10-26 15:35] LABS: Potassium* 3.2 mmol/L (3.6-5.1); Sodium* 138 mmol/L (135-149)
[2022-10-26 15:37] LABS: Aspartate Amino Transferase* 37 U/L (12-35); Bilirubin Direct* 0.1 mg/dL (0.0-0.5); Bilirubin Total* 0.4 mg/dL (0.1-1.5); Carbon Dioxide* 13 mmol/L (20-32); Creatinine* 0.6 mg/dL (0.5-1.5); Estimated Glomerular Filt Rate 123 ml/min; Total Protein* 7.6 g/dL (6.0-8.3)
[2022-10-26 15:38] LABS: Alanine Aminotransferase* 38 U/L (4-35); Alkaline Phosphatase* 68 U/L (40-150); Blood Urea Nitrogen* 8 mg/dL (5-24); Calcium* 9.1 mg/dL (8.4-10.6); Glucose* 182 mg/dL (60-115)
[2022-10-26 15:40] LABS: C Reactive Protein* 0.5 mg/dL (0.5-1.0)
[2022-10-26] MEDS: KETAMINE HCL 100 MG/ML inj 200 MG IM (15:41)
[2022-10-26 15:42] LABS: D Dimer Quantitative* 0.27 ug/ml (0.00-0.50)
[2022-10-26 15:49] LABS: Ethanol* < 0.01 % (0.01-0.03); Salicylate* < 1.0 mg/dL (1.0-10)
--- NOTE | 2022-10-26 15:50 | ED.NURSE ---
Addendum entered by Otf Benitez RN 10/26/22 16:15: EKG done and shown to MD as well. Original Note: Pt becoming less responsive, needing sternal rubs to prompt breathing. O2 desatting to low 90's%. MD notified and in RM to examine pt. Pt placed on 2L O2 NC.
[2022-10-26 16:05] LABS: HCG Qualitative Serum* Negative (Negative)
--- NOTE | 2022-10-26 16:12 | ED.NURSE ---
Pt urinated on herself in the bed. Soiled pants were removed. Straight cath completed to collect UA. Pt cleaned, clean brief applied, new bedding placed on bed.
--- NOTE | 2022-10-26 16:19 | ED.NURSE ---
14 Fr red rubber catheter inserted under sterile fashion. 1 attempt made. Clear urine drained from bladder. No foul odor noted. Urine sent to lab per MD orders. Pt tolerated procedure.
--- NOTE | 2022-10-26 16:30 | ED.NURSE ---
Pt titrated down to 1L O2 NC.
[2022-10-26 16:43] LABS: Appearance Urine Clear (Clear); Bilirubin Urine Negative (Negative); Blood Urine Trace-intact (Negative); Color Urine Yellow (Yellow); Glucose Urine Negative (Negative); Ketones Urine Negative (Negative); Leukocyte Esterase Urine Negative (Negative); Nitrite Urine Negative (Negative); Protein Urine Negative (Negative); Specific Gravity Urine <= 1.005 (1.000-1.030); Urobilinogen Urine 0.2 (0.2-1.0)
--- NOTE | 2022-10-26 16:45 | ED.NURSE ---
Pt gave consent to provide an update to her mother Ashley. Ashley called and provided with update.
[2022-10-26 16:50] LABS: Barbiturate Screen Urine Negative (Negative); Benzodiazepines Screen Urine Negative (Negative); Cannabinoid Screen Urine Negative (Negative); Cocaine Screen Urine Negative (Negative); Methadone Screen Urine Negative (Negative); Methamphetamines Screen Urine Negative (Negative); Opiate Screen Urine Negative (Negative); Oxycodone Screen Urine Negative (Negative); Phencyclidine Screen Urine Negative (Negative); Tricyclic Antidepressant Urine Negative (Negative)
--- NOTE | 2022-10-26 16:50 | ED.NURSE ---
This writer editor and industrial technologist Sissy attempted to assist pt to use bed cornell. Pt was able to assist with rolling herself for bed cornell placement. She was unable to urinate while on the bed cornell.
[2022-10-26 16:52] LABS: Amphetamine Screen Urine POSITIVE (Negative)
--- NOTE | 2022-10-26 16:53 | ED.NURSE ---
Call received from lab. Pt is positive for Amphetamines on UDS. Pt's ED nurse notified. Med/surg provider to be notified by nursing staff upon arrival to floor.
--- NOTE | 2022-10-26 16:55 | ED.NURSE ---
Pt self-DC'd her O2 NC. O2 sats remaining in high-90's%.
[2022-10-26 16:57] LABS: RBC Urine 0-2 (0-2); Squamous Epithelial Cell Urine Few (None-Few); WBC Urine 0-2 (0-5)
[2022-10-26 17:09] LABS: INR 0.92 (0.91-1.10)
--- NOTE | 2022-10-26 17:10 | PM.IMHP1 ---
Hospitalist- H&P: HPI History of Present Illness Date Seen: 10/26/22 Chief complaint: Ill Narrative: Linda Reddy is a 32 year old female who was brought into the emergency room by ambulance this afternoon for altered mental status. Patient unable to provide history, mother in room and assists with timeline. Jaren texted her mother and many other family members help me around 1pm. Soon after that, she was found by a co-worker in the bathroom at work with acute confusion, singing in speaking nonsensically. She was brought in by ambulance, blood sugar was 233. ED course and findings: - confused and agitated upon ED arrival - Tylenol level 59, unclear date of ingestion - elevated AST/ALT, normal INR - BG 182 - negative UPT Patient presented very similarly to our emergency room on 10/21; at that time had a negative head CT and Tylenol level was within normal limits. She was treated with Zyprexa and seen by DEC assessment team, who arranged close outpatient followup. At that time patient denied any suicidal ideation. When Jaren arrives on the floor, she is sleepy but intermittently interactive; when asked about ingestions, she answers I took some Midol but is unable to tell me a timeline. Past medical history updated below. Dr. Salcedo is PCP locally. Review of Systems Status of ROS: Reports: unobtainable due to mental status [facility] Medical History (Updated 10/26/22 @ 17:51 by Courtney Camarena MD) Hidradenitis ?L73.2 - Hidradenitis suppurativa (ICD-10) Dyshidrotic eczema ?L30.1 - Dyshidrosis [pompholyx] (ICD-10) ADHD ?F90.9 - Attention-deficit hyperactivity disorder, unspecified type (ICD-10) Anxiety and depression ?F41.9 - Anxiety disorder, unspecified (ICD-10) ?F32.A - Depression, unspecified (ICD-10) Surgical History (Updated 10/26/22 @ 17:29 by Courtney Camarena MD) S/P tonsillectomy and adenoidectomy ?Z90.89 - Acquired absence of other organs (ICD-10) S/P LEEP (loop electrosurgical excision procedure) ?Z98.890 - Other specified postprocedural states (ICD-10) Social History Smoking Status: Unknown if ever smoked How often do you have a drink containing alcohol: 2-4 times a month How many standard drinks containing alcohol do you have on a typical day: 3 or 4 How often do you have six or more drinks on one occasion: Less than monthly AUDIT-C Alcohol total score: 4 Non-prescribed substance use: marijuana (any form) Meds Home Medications and Allergies Home Medications Medication Instructions Recorded Confirmed Type betamethasone dipropionate 0.05 % 1 applic topical BID 10/21/22 10/26/22 History topical cream minocycline 100 mg capsule 100 mg PO BID 10/21/22 10/26/22 History dextroamphetamine-amphetamine 20 1 tab PO BID 10/26/22 10/26/22 History mg tablet dextroamphetamine-amphetamine 5 mg 1 tab PO BID 10/26/22 10/26/22 History tablet fluoxetine 40 mg capsule 40 mg PO DAILY 10/26/22 10/26/22 History tretinoin 0.05 % topical cream 1 applic topical Q48H 10/26/22 10/26/22 History (Retin-A) Home Medication Comments: Confirmed per chart review and with mother Allergies Allergy/AdvReac Type Severity Reaction Status Date / Time No Known Drug Allergies Allergy Verified 10/21/22 21:09 Exam Narrative: Exam Narrative: GEN: Patient sleepy, intermittently answering questions HEENT: Pupils miotic, EOMIs bilaterally, no scleral icterus, dentition is poor CV: Sinus tachycardia with rate 100s R: LCTA bilaterally without concerning wheezing, air movement adequate Ext: wwp, no concerning edema Skin: desquamated skin on bilateral palms (patient notes a history of ezcema), no concerning skin lesions or bruising Neuro: Nonfocal Psych: Sleepy, arousable Const: Vital Signs, click to edit/add: Vital Signs - 24 hr 10/26/22 14:48 10/26/22 14:48 10/26/22 15:07 Temperature 99.3 F Pulse Rate 136 H Pulse Rate [Right Pulse Oximeter] 136 H Respiratory Rate 20 Blood Pressure Blood Pressure [Ri ght Upper Arm] 144/85 H Pulse Oximetry 100 100 100 Oxygen Delivery Me thod Room Air Oxygen Flow Rate 10/26/22 15:12 10/26/22 15:15 10/26/22 15:30 Temperature Pulse Rate 129 H 133 H Pulse Rate [Right Pulse Oximeter] Respiratory Rate 32 H Blood Pressure Blood Pressure [Ri ght Upper Arm] Pulse Oximetry 100 100 Oxygen Delivery Me thod Oxygen Flow Rate 10/26/22 15:32 10/26/22 15:33 10/26/22 15:42 Temperature Pulse Rate 129 H 132 H 139 H Pulse Rate [Right Pulse Oximeter] Respiratory Rate 10 L 14 Blood Pressure 115/70 139/86 Blood Pressure [Ri ght Upper Arm] Pulse Oximetry 100 99 100 Oxygen Delivery Me thod Oxygen Flow Rate 10/26/22 15:45 10/26/22 15:46 10/26/22 15:50 Temperature Pulse Rate 137 H Pulse Rate [Right Pulse Oximeter] Respiratory Rate 28 H Blood Pressure Blood Pressure [Ri ght Upper Arm] Pulse Oximetry 100 97 Oxygen Delivery Me thod Nasal Cannula Oxygen Flow Rate 2 10/26/22 16:00 10/26/22 16:02 10/26/22 16:03 Temperature Pulse Rate 130 H 131 H 122 H Pulse Rate [Right Pulse Oximeter] Respiratory Rate 32 H Blood Pressure 144/86 H Blood Pressure [Ri ght Upper Arm] Pulse Oximetry 97 97 99 Oxygen Delivery Me thod Nasal Cannula Nasal Cannula Nasal Cannula Oxygen Flow Rate 2 2 2 10/26/22 16:14 10/26/22 16:15 10/26/22 16:30 Temperature Pulse Rate 125 H 115 H 113 H Pulse Rate [Right Pulse Oximeter] Respiratory Rate 14 22 24 Blood Pressure 139/90 H Blood Pressure [Ri ght Upper Arm] Pulse Oximetry 99 99 99 Oxygen Delivery Me thod Nasal Cannula Nasal Cannula Nasal Cannula Oxygen Flow Rate 2 2 1 10/26/22 16:31 10/26/22 16:45 Temperature Pulse Rate 112 H 105 H Pulse Rate [Right Pulse Oximeter] Respiratory Rate 19 25 H Blood Pressure 131/94 H Blood Pressure [Ri ght Upper Arm] Pulse Oximetry 98 97 Oxygen Delivery Me thod Nasal Cannula Nasal Cannula Oxygen Flow Rate 1 1 Hospitalist - H&P: Result Labs Labs: Short CBC 10/26/22 Range/Units 14:58 WBC 8.88 (4.50-11.00) K/uL Hgb 13.5 (12.0-16.0) gm/dL Hct 39.3 (33.0-51.0) % Plt Count 268 (140-440) K/uL BMP 10/26/22 14:58 Sodium 138 Potassium 3.2 L Chloride 105 Carbon Dioxide 13 L BUN 8 Creatinine 0.6 Glucose 182 H Calcium 9.1 Liver Function 10/26/22 Range/Units 14:58 Total Bilirubin 0.4 (0.1-1.5) mg/dL Direct Bilirubin 0.1 (0.0-0.5) mg/dL AST 37 H (12-35) U/L ALT 38 H (4-35) U/L Alkaline Phosphatase 68 (40-150) U/L Albumin 4.5 (3.3-5.0) g/dL Urine 10/26/22 Range/Units 16:06 Urine Color Yellow (Yellow) Urine Appearance Clear (Clear) Urine pH 6.0 (5.0-8.5) Ur Specific [place] <= 1.005 (1.000-1.030) Urine Protein Negative (Negative) Urine Glucose (UA) Negative (Negative) Assessment and Plan Assessment and plan (1) Acetaminophen overdose: Problem comment: - unclear time of ingestion or intent - given unknown timeline, will treat with NAC per protocol (ED physician reviewed with Poison Control) - will need repeat DEC assessment when able to participate Status: Acute (2) Altered mental status: Problem comment: - related to ingestion vs illness vs psychiatric disease - negative Head CT during ED visit 10/21 - continue to monitor closely Status: Acute (3) Hypokalemia: Problem comment: - replace and follow Status: Acute (4) Elevated LFTs: Problem comment: - elevated AST/ALT, normal INR - follow Status: Acute Plan - admit to CCU, treat with NAC per protocol - follow LFTs and APAP level - suicide precautions - repeat DEC assessment when patient able to participate - SCDs for ppx - mother updated at bedside, questions answered
[2022-10-26] MEDS: LORazepam 2 MG/ML inj 1 MG IVP ×2 (18:16→22:29)
[2022-10-26] MEDS: PANTOPRAZOLE SODIUM 40 MG INJ IVP (18:16)
[2022-10-26 18:40] LABS: Hemoglobin A1C* 4.88 % (0-5.6)
--- NOTE | 2022-10-26 22:36 | PC.NURSE ---
Pt was resting comfortably @ 2230 pt all of a sudden became very restless. Asking: Why, Why, Why am i going to . notified. RN remained in room 1:1
[2022-10-27] VITALS (8 sets, daily range): BP systolic 115–135; BP diastolic 65–88; PULSE 75–90; RESP 16–20; TEMP 36.3–36.9; O2SAT 96–100
[2022-10-27] MEDS: 0.9 % SODIUM CHLORIDE 1000 ml 1,000 ML 125 ML IV (00:31)
[2022-10-27 07:18] LABS: Basophils Absolute Auto 0.03 K/uL (0.00-0.30); Basophils Percent Auto 0.4 % (0.0-3.0); Eosinophils Absolute Auto 0.11 K/uL (0.00-0.50); Eosinophils Percent Auto 1.3 % (0.0-7.0); Hematocrit 36.8 % (33.0-51.0); Hemoglobin* 12.5 gm/dL (12.0-16.0); Lymphocytes Absolute Auto 2.34 K/uL (0.90-2.90); Lymphocytes Percent Auto 27.6 % (20-44); Mean Corpuscular HGB Conc 34 gm/dL (32-36); Mean Corpuscular Hemoglobin 30 pg (26-34); Mean Corpuscular Volume 88 fL (80-100); Monocytes Percent Auto 6.4 % (0.0-11.0); Neutrophils Absolute Auto 5.45 K/uL (1.7-7.0); Neutrophils Percent Auto 64.3 % (42.0-72.0); Platelet Count* 238 K/uL (140-440); Red Blood Count 4.19 m/uL (4.00-5.20); White Blood Count* 8.47 K/uL (4.50-11.00)
--- NOTE | 2022-10-27 07:27 | PM.IMPN1 ---
Progress Note: A&P Assessment and plan (1) Acetaminophen overdose: Problem details: - unclear time of ingestion or intent - given unknown timeline, will treat with NAC per protocol (ED physician reviewed with Poison Control) - DEC assessment today Status: Acute (2) Hypokalemia: Problem details: - replace and follow Status: Acute (3) Altered mental status: Problem details: - related to ingestion vs illness vs psychiatric disease - negative Head CT during ED visit 10/21 - 10/27 resolved Status: Acute (4) Elevated LFTs: Problem details: - elevated AST/ALT, normal INR 10/27; repeat LFTs wnl Status: Acute (5) Suicidal ideation: Problem details: Passive SI; no active SI; no weapons; no active plans. Triggers increased stress from work and personal life but does not elaborate; endorses worsening depression Status: Acute Assessment and Plan: I spoke with patient's Mother Ashley; Per mom increased stress taking care of her daughter who has disability/special needs as well as increased stress for wisdom teeth extraction (6) Anxiety and depression: Problem details: hold SSRI for now Status: Acute Subjective Date Seen: 10/27/22 Interval history: Patient new to me Still getting NAC infusion patient endorses passive suicidal ideation with no plan no weapons in home Stressors include job & home life (has two kids) but would not elaborate previous hx of intentional overdose DEC assessment today LFTs WNL this morning potassium low I spoke with patient's Mother Ashley; Per mom increased stress taking care of her daughter who has disability/special needs as well as increased stress for wisdom teeth extraction Exam Narrative: Exam Narrative: Gen: no acute distress HEENT: NCAT EOMI mmm Neck: Supple CV: RRR normal s1 s2 Lungs: CTAB Abd: Soft,nt, nd Neuro: Alert, oriented, CN grossly intact; nonfocal screening?exam Psych: flat affect MSK: age appropriate muscle mass Skin; Warm, dry no rash on face Const: Vital Signs, click to edit/add: Vital Signs - 24 hr 10/26/22 14:48 10/26/22 14:48 10/26/22 15:07 Temperature 99.3 F Pulse Rate 136 H Pulse Rate [Left R adial] Pulse Rate [Right Pulse Oximeter] 136 H Respiratory Rate 20 Blood Pressure Blood Pressure [Ri ght Arm] Blood Pressure [Ri ght Upper Arm] 144/85 H Pulse Oximetry 100 100 100 Oxygen Delivery Me thod Room Air Oxygen Flow Rate 10/26/22 15:12 10/26/22 15:15 10/26/22 15:30 Temperature Pulse Rate 129 H 133 H Pulse Rate [Left R adial] Pulse Rate [Right Pulse Oximeter] Respiratory Rate 32 H Blood Pressure Blood Pressure [Ri ght Arm] Blood Pressure [Ri ght Upper Arm] Pulse Oximetry 100 100 Oxygen Delivery Me thod Oxygen Flow Rate 10/26/22 15:32 10/26/22 15:33 10/26/22 15:42 Temperature Pulse Rate 129 H 132 H 139 H Pulse Rate [Left R adial] Pulse Rate [Right Pulse Oximeter] Respiratory Rate 10 L 14 Blood Pressure 115/70 139/86 Blood Pressure [Ri ght Arm] Blood Pressure [Ri ght Upper Arm] Pulse Oximetry 100 99 100 Oxygen Delivery Me thod Oxygen Flow Rate 10/26/22 15:45 10/26/22 15:46 10/26/22 15:50 Temperature Pulse Rate 137 H Pulse Rate [Left R adial] Pulse Rate [Right Pulse Oximeter] Respiratory Rate 28 H Blood Pressure Blood Pressure [Ri ght Arm] Blood Pressure [Ri ght Upper Arm] Pulse Oximetry 100 97 Oxygen Delivery Me thod Nasal Cannula Oxygen Flow Rate 2 10/26/22 16:00 10/26/22 16:02 10/26/22 16:03 Temperature Pulse Rate 130 H 131 H 122 H Pulse Rate [Left R adial] Pulse Rate [Right Pulse Oximeter] Respiratory Rate 32 H Blood Pressure 144/86 H Blood Pressure [Ri ght Arm] Blood Pressure [Ri ght Upper Arm] Pulse Oximetry 97 97 99 Oxygen Delivery Me thod Nasal Cannula Nasal Cannula Nasal Cannula Oxygen Flow Rate 2 2 2 10/26/22 16:14 10/26/22 16:15 10/26/22 16:30 Temperature Pulse Rate 125 H 115 H 113 H Pulse Rate [Left R adial] Pulse Rate [Right Pulse Oximeter] Respiratory Rate 14 22 24 Blood Pressure 139/90 H Blood Pressure [Ri ght Arm] Blood Pressure [Ri ght Upper Arm] Pulse Oximetry 99 99 99 Oxygen Delivery Me thod Nasal Cannula Nasal Cannula Nasal Cannula Oxygen Flow Rate 2 2 1 10/26/22 16:31 10/26/22 16:45 10/26/22 17:33 Temperature 98.1 F Pulse Rate 112 H 105 H Pulse Rate [Left R adial] 101 H Pulse Rate [Right Pulse Oximeter] Respiratory Rate 19 25 H 16 Blood Pressure 131/94 H Blood Pressure [Ri ght Arm] 147/87 H Blood Pressure [Ri ght Upper Arm] Pulse Oximetry 98 97 98 Oxygen Delivery Me thod Nasal Cannula Nasal Cannula Room Air Oxygen Flow Rate 1 1 10/26/22 18:26 10/26/22 18:26 10/26/22 18:42 Temperature Pulse Rate 100 Pulse Rate [Left R adial] Pulse Rate [Right Pulse Oximeter] Respiratory Rate 16 16 Blood Pressure Blood Pressure [Ri ght Arm] Blood Pressure [Ri ght Upper Arm] Pulse Oximetry 98 98 Oxygen Delivery Me thod Room Air Room Air Oxygen Flow Rate 1 10/26/22 19:15 10/26/22 22:44 10/26/22 22:46 Temperature 97.6 F Pulse Rate 89 Pulse Rate [Left R adial] 89 89 Pulse Rate [Right Pulse Oximeter] Respiratory Rate 16 16 Blood Pressure Blood Pressure [Ri ght Arm] 131/87 Blood Pressure [Ri ght Upper Arm] Pulse Oximetry 99 Oxygen Delivery Me thod Room Air Oxygen Flow Rate 0 10/26/22 22:49 10/26/22 22:50 10/27/22 02:44 Temperature 98 F 98 F Pulse Rate Pulse Rate [Left R adial] 93 90 Pulse Rate [Right Pulse Oximeter] Respiratory Rate 16 16 Blood Pressure Blood Pressure [Ri ght Arm] 138/88 135/85 Blood Pressure [Ri ght Upper Arm] Pulse Oximetry 99 99 99 Oxygen Delivery Me thod Room Air Room Air Room Air Oxygen Flow Rate 0 0 10/27/22 07:05 Temperature Pulse Rate 75 Pulse Rate [Left R adial] Pulse Rate [Right Pulse Oximeter] Respiratory Rate Blood Pressure Blood Pressure [Ri ght Arm] Blood Pressure [Ri ght Upper Arm] Pulse Oximetry Oxygen Delivery Me thod Oxygen Flow Rate Labs Labs: Laboratory Results - last 24 hr 10/26/22 10/26/22 10/26/22 14:58 16:02 16:06 WBC 8.88 RBC 4.54 Hgb 13.5 Hct 39.3 MCV 87 MCH 30 MCHC 34 RDW Coeff of Enoc 12.7 Plt Count 268 Neut % (Auto) 78.2 H Lymph % (Auto) 15.3 L [place] % (Auto) 6.0 Eos % (Auto) 0.2 Baso % (Auto) 0.2 Neut # (Auto) 6.90 Lymph # (Auto) 1.40 [place] # (Auto) 0.50 Eos # (Auto) 0.02 Baso # (Auto) 0.02 INR 0.92 D-Dimer Quant (PE/DVT) 0.27 Sodium 138 Potassium 3.2 L Chloride 105 Carbon Dioxide 13 L BUN 8 Creatinine 0.6 Estimated GFR 123 Glucose 182 H Hemoglobin A1c 4.88 Calcium 9.1 Total Bilirubin 0.4 Direct Bilirubin 0.1 AST 37 H ALT 38 H Alkaline Phosphatase 68 C-Reactive Protein 0.5 Total Protein 7.6 Albumin 4.5 HCG, Qual Negative Urine Color Yellow Urine Appearance Clear Urine pH 6.0 Ur Specific [place] <= 1.005 Urine Protein Negative Urine Glucose (UA) Negative Urine Ketones Negative Urine Blood Trace-intact A Urine Nitrite Negative Urine Bilirubin Negative Urine Urobilinogen 0.2 Ur Leukocyte Esterase Negative Urine RBC 0-2 Urine WBC 0-2 Ur Squamous Epith Cells Few Urine Bacteria None Salicylates < 1.0 L Urine Opiates Screen Negative Ur Oxycodone Screen Negative Urine Methadone Screen Negative Ur Propoxyphene Screen Negative Acetaminophen 59.0 H Ur Barbiturates Screen Negative U Tricyclic Antidepress Negative Ur Phencyclidine Scrn Negative Ur Amphetamines Screen POSITIVE A* U Methamphetamines Scrn Negative U Benzodiazepines Scrn Negative Urine Cocaine Screen Negative U Marijuana (THC) Screen Negative Ur Drug Screen Comment See Note Ethyl Alcohol < 0.01 L Lab Acknowledgement 10/26/22 10/26/22 16:58 18:32 WBC RBC Hgb Hct MCV MCH MCHC RDW Coeff of Enoc Plt Count Neut % (Auto) Lymph % (Auto) [place] % (Auto) Eos % (Auto) Baso % (Auto) Neut # (Auto) Lymph # (Auto) [place] # (Auto) Eos # (Auto) Baso # (Auto) INR D-Dimer Quant (PE/DVT) Sodium Potassium Chloride Carbon Dioxide BUN Creatinine Estimated GFR Glucose Hemoglobin A1c Calcium Total Bilirubin Direct Bilirubin AST ALT Alkaline Phosphatase C-Reactive Protein Total Protein Albumin HCG, Qual Urine Color Urine Appearance Urine pH Ur Specific [place] Urine Protein Urine Glucose (UA) Urine Ketones Urine Blood Urine Nitrite Urine Bilirubin Urine Urobilinogen Ur Leukocyte Esterase Urine RBC Urine WBC Ur Squamous Epith Cells Urine Bacteria Salicylates Urine Opiates Screen Ur Oxycodone Screen Urine Methadone Screen Ur Propoxyphene Screen Acetaminophen Ur Barbiturates Screen U Tricyclic Antidepress Ur Phencyclidine Scrn Ur Amphetamines Screen U Methamphetamines Scrn U Benzodiazepines Scrn Urine Cocaine Screen U Marijuana (THC) Screen Ur Drug Screen Comment Ethyl Alcohol Lab Acknowledgement Test Added Test Added
[2022-10-27 07:29] LABS: Slide Review Reflex No
[2022-10-27 07:44] LABS: Magnesium* 1.7 mg/dL (1.5-2.6)
[2022-10-27 07:46] LABS: Chloride* 108 mmol/L (96-114)
[2022-10-27 07:47] LABS: Albumin* 3.4 g/dL (3.3-5.0); Sodium* 137 mmol/L (135-149)
[2022-10-27 07:48] LABS: Potassium* 3.4 mmol/L (3.6-5.1)
[2022-10-27 07:50] LABS: Alanine Aminotransferase* 27 U/L (4-35); Alkaline Phosphatase* 54 U/L (40-150); Aspartate Amino Transferase* 30 U/L (12-35); Bilirubin Total* 0.5 mg/dL (0.1-1.5); Blood Urea Nitrogen* 3 mg/dL (5-24); Calcium* 8.6 mg/dL (8.4-10.6); Carbon Dioxide* 23 mmol/L (20-32); Creatinine* 0.5 mg/dL (0.5-1.5); Est. Creatinine Clearance* 158.53; Estimated Glomerular Filt Rate 129 ml/min; Glucose* 90 mg/dL (60-115); Total Protein* 6.3 g/dL (6.0-8.3)
[2022-10-27 08:01] LABS: Acetaminophen* < 10.0 ug/mL (10.0-30.0); Prothrombin Time 14.9 Seconds
[2022-10-27] MEDS: POTASSIUM CHLORIDE 10 MEQ CAPSULE ER 40 MEQ PO (08:53)
--- NOTE | 2022-10-27 12:24 | PC.NURSE ---
[facility] Poison control called for patient lab update. Recommend repeat INR and LFT's now, If remains within normal limits, may discontinue acetylcysteine IV drip.
[2022-10-27 13:51] LABS: INR 1.07 (0.91-1.10); Prothrombin Time 14.6 Seconds
[2022-10-27 14:15] LABS: Alanine Aminotransferase* 27 U/L (4-35); Albumin* 3.4 g/dL (3.3-5.0); Alkaline Phosphatase* 48 U/L (40-150); Aspartate Amino Transferase* 32 U/L (12-35); Bilirubin Total* 0.4 mg/dL (0.1-1.5)
--- NOTE | 2022-10-27 14:18 | P.EN_ITS ---
Chart Event Note Date Seen: 10/27/22 Chart Event Note: Discussed recent events with patient and tele mental health provider. I am concerned about the events of yesterday leading to an overdose. Patient is now stating that this was simply a panic attack and she is now fine without suicidal ideation or symptoms of anxiety. She is unable however to explain the events of yesterday leading to an overdose and her altered mental status on presentation to the emergency room. I am concerned that she remains at risk for recurrent mental health crisis with suicide attempt or active self-harm. Will look into mental health placement. Acetaminophen level has returned to normal. LFTs have returned to normal. Luis Miguel tylcysteine can be stopped. Change patient's status to med surg floor.
--- NOTE | 2022-10-27 15:21 | PC.SOCIAL ---
Discharge plan: Received bed identification summary from MAR. DEC indicated availability at the following facilities: 1. [facility] - phone:[phone] fax:[phone] 2. [facility] - phone:[phone] fax:[phone] 3. [facility] - phone:[phone] fax:[phone] piece worker to fax requested information to these facilities when MAR assessment is received.
[2022-10-27] MEDS: OMEPRAZOLE 20 MG CAPSULE DR PO (17:22)
--- NOTE | 2022-10-27 17:43 | PC.NURSE ---
Pt. calm and cooperative with all assessments and cares. Denies suicidal ideation.
--- NOTE | 2022-10-27 17:53 | PC.NURSE ---
Call placed to DEC as we have not received report at this time. They will fax shortly.
--- NOTE | 2022-10-27 20:54 | PC.NURSE ---
[facility] in [place] has accepted Petra as a patient. Patient was updated, all questions answered. Per patient request/with patient's permission, updated mother Kimberly of plan. No further questions.
[2022-10-27] MEDS: SODIUM CHLORIDE 0.9 % (FLUSH) 10 ML SYRINGE 5 ML IVF (21:22)
--- NOTE | 2022-10-27 21:31 | P.DS_ITS ---
Transfer Discharge Sum: Prov Provider Date Seen: 10/27/22 Date of admission: 10/26/22 17:08 Primary care physician: Neela Salcedo DO Admitting clinician: Courtney Camarena Consults: 10/26/22 18:09 Consult to Children'S Service Supervisor [CONS] Routine Comment: Reason for Consult:: Social Service Consult Suicide Risk Attending physician on discharge: Courtney Camarena Anticipated date of transfer: 10/27/22 [facility] [place] [facility]: Diagnosis Discharge Diagnosis (1) Acetaminophen overdose: Status: Acute Problem details: - unclear time of ingestion or intent (patient stated morning of admission, took approximately 7 Midol) - treated with NAC protocol, normal AST and negative Tylenol level on hospital day 1 (2) Suicidal ideation: Status: Acute Problem details: - passive thoughts of dying with 2 recent episodes of acute agitation/AMS (3) Anxiety and depression: Status: Acute Problem details: - on Prozac as outpatient - also has ADHD, on Adderall Transfer Discharge Sum: Med Medications Active and Home Medications: Home Medications betamethasone dipropionate 0.05 % topical cream 1 applic topical BID 10/21/22 [History Confirmed 10/26/22] minocycline 100 mg capsule 100 mg PO BID 10/21/22 [History Confirmed 10/26/22] dextroamphetamine-amphetamine 20 mg tablet 1 tab PO BID 10/26/22 [History Confirmed 10/26/22] dextroamphetamine-amphetamine 5 mg tablet 1 tab PO BID 10/26/22 [History Confirmed 10/26/22] fluoxetine 40 mg capsule 40 mg PO DAILY 10/26/22 [History Confirmed 10/26/22] tretinoin 0.05 % topical cream (Retin-A) 1 applic topical Q48H 10/26/22 [History Confirmed 10/26/22] Active Medications Lorazepam (Lorazepam 2 Mg/Ml Inj) 1 mg IVP Q2H PRN Last Admin: 10/26/22 22:29 Dose: 1 mg Omeprazole (Omeprazole [address]) 20 mg PO DAILY@0700 RAH Last Admin: 10/27/22 17:22 Dose: 20 mg Ondansetron HCl (Ondansetron 2 Mg/Ml Inj) 4 mg IVP Q6H PRN PRN Reason: Nausea Quetiapine Fumarate (Quetiapine 25 Mg Tablet) 25 mg PO Q8H PRN PRN Reason: Agitation Sodium Chloride (Sodium Chloride 0.9 % (Flush) 10 Ml Syringe) 5 ml IVF .FLUSH PRN Sodium Chloride (Sodium Chloride 0.9 % (Flush) 10 Ml Syringe) 5 ml IVF BID RAH Last Admin: 10/27/22 21:22 Dose: 5 ml Transfer Discharge Sum: Hosp Hospital Course Hospital course: Linda Reddy is a 32 year old female who was admitted to the hospital on 10/26 after presenting to the ED by ambulance for AMS and acute confusion. She had a similar presentation to the ED on 10/21, responded well to Zyprexa and Ketamine, and had a negative head CT. Seen by JD at that time who arranged close outpatient f/u. On re-presentation, was found to be agitated, confused with an elevated Tylenol level (59) and elevated AST/ALT. INR normal. Given unknown time of APAP ingestion, she was treated with NAC protocol. Tylenol undetectable on hospital day 1 and LFTs normalized. Patient then stated that she had taken approximately 7 Midol on the morning of 10/26, endorses a history of suicidal ideation. Linda has a history of anxiety/depression and ADHD; on Prozac and Adderall as an outpatient (admission drug screen + for methamphetamines) Given patient's multiple ED presentations, concern for acute psychiatric event, she and family were amenable to psych placement. She was medically appropriate for discharge and transferred to [facility] in [place], [place] on 10/27/22. Time Spent with Patient Time attestation: Total time spent providing and/or coordinating transfer services: Total time spent: Greater than 30 minutes Exam Narrative: Exam Narrative: Patient is nontoxic in appearance, mildly tearful discussing transfer Pulse palpates as RRR, she is breathing comfortably. Const: Vital Signs, click to edit/add: Vital Signs - 24 hr 10/26/22 22:44 10/26/22 22:46 10/26/22 22:49 Temperature Pulse Rate 89 Pulse Rate [Left R adial] 89 Respiratory Rate 16 Blood Pressure [Ri ght Arm] Pulse Oximetry 99 Oxygen Delivery Me thod Room Air Oxygen Flow Rate 10/26/22 22:50 10/27/22 02:44 10/27/22 07:05 Temperature 98 F 98 F Pulse Rate 75 Pulse Rate [Left R adial] 93 90 Respiratory Rate 16 16 Blood Pressure [Ri ght Arm] 138/88 135/85 Pulse Oximetry 99 99 Oxygen Delivery Me thod Room Air Room Air Oxygen Flow Rate 0 0 10/27/22 07:26 10/27/22 07:26 10/27/22 11:28 Temperature 97.4 F L 98.4 F Pulse Rate Pulse Rate [Left R adial] 86 85 Respiratory Rate 16 20 Blood Pressure [Ri ght Arm] 127/82 121/77 Pulse Oximetry 100 100 96 Oxygen Delivery Me thod Room Air Room Air Room Air Oxygen Flow Rate 10/27/22 15:54 10/27/22 15:54 10/27/22 16:39 Temperature 98 F Pulse Rate 88 Pulse Rate [Left R adial] 89 Respiratory Rate 18 Blood Pressure [Ri ght Arm] 115/65 Pulse Oximetry 96 96 Oxygen Delivery Me thod Room Air Room Air Oxygen Flow Rate 10/27/22 19:00 Temperature 98 F Pulse Rate Pulse Rate [Left R adial] 81 Respiratory Rate 16 Blood Pressure [Ri ght Arm] 124/83 Pulse Oximetry 98 Oxygen Delivery Me thod Room Air Oxygen Flow Rate Discharge Plan Discharge Disposition: Xfer Other Date of Admission: 10/26/22 17:08 Attending Provider on Discharge: Courtney Camarena Primary Care Provider: Neela Salcedo Condition: Stable Anticipated Discharge Date/Time: 10/27/22 21:41 Discharge Medications: Continued minocycline 100 mg capsule 100 mg PO BID betamethasone dipropionate 0.05 % cream 1 applic topical BID fluoxetine 40 mg capsule 40 mg PO DAILY tretinoin [Retin-A] 0.05 % cream 1 applic topical Q48H dextroamphetamine-amphetamine 20 mg tablet 1 tab PO BID dextroamphetamine-amphetamine 5 mg tablet 1 tab PO BID Discharge Orders: Discharge Order (Routine); Ordered 10/27/22 Ordered By: Courtney Camarena Activity Level: Activity as Tolerated Follow Up Appointments: Neela Salcedo DO [Primary Care Provider] - (Routine f/u with PCP after [facility] hospitalization.) Forms: [facility] Info Instructions
== END 2022-10-27 21:37 | DRG 812 ==
LOC: ED 16:30 → MEDSURG 16:58
PROVIDERS: Family Medicine; Hospitalist; Admitting Provider Family Medicine; Emergency Provider Family Medicine; PCP Family Medicine; Visit Provider Family Medicine
DX: T39.1X4A Poisoning by 4-Aminophenol derivatives, undetermined, initial encounter (principal); R45.851 Suicidal ideations; R41.82 Altered mental status, unspecified; R45.1 Restlessness and agitation; E87.6 Hypokalemia; R79.89 Other specified abnormal findings of blood chemistry; F90.9 Attention-deficit hyperactivity disorder, unspecified type; F41.9 Anxiety disorder, unspecified; F32.A Depression, unspecified
CPT/HCPCS: 36415; 80048; 80053; 80076; 80143; 80179; 80306; 81001; 82077; 82962; 83036; 83735; 84703; 85025; 85379; 85610; 86140; 93005; 94761; 99285; 99291; 99292; A9270; C9113; J0132; J2060; J3490; J7030; J7050; J7070; J7120; S0166

== ENCOUNTER 2022-10-27 21:29 | Outpatient (CLI) | payer BC, SELFPAY | END 2022-10-27 21:30 | disposition home or self-care (01) | LOC: AMB 11-01 11:45 | PROVIDERS: PCP Family Medicine; Visit Provider Family Medicine | DX: F29 Unspecified psychosis not due to a substance or known physiological condition (principal) | CPT/HCPCS: A0425; A0428 ==